=== PATIENT | male | born 1985 | race Two or more races ===

== ENCOUNTER 2023-05-22 20:43 | Emergency (ER) | payer MEDICAID, OTHER ==
[~2023-05-22] VITALS: Ht 185.4 cm; Wt 83.2 kg
[2023-05-22 21:26] VITALS: BP 145/100; PULSE 96
[2023-05-22 22:42] LABS: Basophils # (auto) 0.1 10 ^3/uL (0-0.2); Eosinophils # (auto) 0.2 10 ^3/uL (0-0.8); Eosinophils % (auto) 2.3 % (0.0-7.0); Hematocrit 48.9 % (41.0-53.0); Hemoglobin 17.2 g/dL (13.5-17.5); Lymphocytes # (auto) 3.1 10 ^3/uL (0.4-5.4); Lymphocytes % (auto) 31.7 % (10.0-50.0); Mean Corpuscular Hemoglobin 30.9 pg (28.0-32.0); Mean Corpuscular Hgb Conc. 35.2 g/dL (32.0-36.0); Mean Corpuscular Volume 87.9 fL (80.0-100.0); Monocytes # (auto) 0.7 10 ^3/uL (0-1.3); Monocytes % (auto) 6.7 % (0.0-12.0); Neutrophils # (auto) 5.8 10 ^3/uL (1.6-8.6); Neutrophils % (auto) 58.3 % (37.0-80.0); Nucleated Red Blood Cells % 0.2 %; Red Blood Cells 5.57 10^6/uL (4.5-5.90); Red Cell Distribution Width 13.3 % (11.8-14.3); White Blood Cell 9.9 10^3/uL (4.4-10.8)
[2023-05-22 22:58] LABS: Alanine Aminotransferase 47 U/L (7-40); Albumin 4.7 g/dL (3.2-4.8); Alkaline Phosphatase 124 U/L (46-116); Anion Gap 6 (5-15); Aspartate Aminotransferase 27 U/L (13-40); BUN/Creatinine Ratio 10.6 (10.0-20.0); Blood Urea Nitrogen 11 mg/dL (9-23); Calcium 9.8 mg/dL (8.7-10.4); Carbon Dioxide 27 mmol/L (20-30); Chloride 106 mmol/L (98-107); Glucose 98 mg/dL (74-106); Potassium 3.5 mmol/L (3.5-5.1); Sodium 139 mmol/L (136-145)
[2023-05-22 22:59] LABS: Bilirubin, Total 1.4 mg/dL (0.2-1.0); Total Protein 7.7 g/dL (5.7-8.2)
[2023-05-23 02:12] VITALS: RESP 20; O2SAT 99
[2023-05-23] MEDS: ALBUTEROL SULF 2.5 MG/0.5ML(0.5%) NEB SOLN NEB ONE (02:12)
[2023-05-23] MEDS ORDERED: DEX4T PO (17:35)
[2023-05-23] MEDS ORDERED: METO-281 PO (17:35)
[2023-05-23] MEDS ORDERED: ALBUAER3 IN (17:35)
== END 2023-05-23 04:33 | disposition home or self-care (01) ==
LOC: ER 20:43
DX: F41.9 Anxiety disorder, unspecified (principal); F19.10 Other psychoactive substance abuse, uncomplicated; F17.210 Nicotine dependence, cigarettes, uncomplicated; F12.10 Cannabis abuse, uncomplicated; F15.10 Other stimulant abuse, uncomplicated; F14.10 Cocaine abuse, uncomplicated
CPT/HCPCS: 36415; 71045; 80053; 83880; 84484; 85025; 94640

== ENCOUNTER 2023-05-23 13:49 | Emergency (ER) | payer MEDICAID ==
[~2023-05-23] VITALS: Ht 185.4 cm; Wt 83.6 kg
[2023-05-23] MEDS: SODIUM CHLORIDE 0.9% 1,000 ML IV ONE (14:55)
[2023-05-23] MEDS: METOCLOPRAMIDE HCL 5MG/ml INJ 2ml VIAL IV ONE (15:03)
[2023-05-23 15:17] VITALS: BP 123/80; PULSE 83; RESP 18; TEMP 97.6; O2SAT 98
[2023-05-23] MEDS ORDERED: METO-281 PO (17:35)
[2023-05-23] MEDS ORDERED: DEX4T PO (17:35)
[2023-05-23] MEDS ORDERED: ALBUAER3 IN (17:35)
== END 2023-05-23 18:11 | disposition home or self-care (01) ==
LOC: ER 13:49
DX: J45.909 Unspecified asthma, uncomplicated (principal); K29.70 Gastritis, unspecified, without bleeding
CPT/HCPCS: 71046; 96361; 96374; 99283; J2765; J7030

== ENCOUNTER 2024-09-12 09:34 | Emergency (ER) | payer MEDICAID ==
[~2024-09-12] VITALS: Ht 185.4 cm; Wt 86.5 kg
[~2024-09-12 09:34] MED LIST: ALBUAER3 IN; DEX4T PO; METO-281 PO
--- NOTE | 2024-09-12 09:43 | ED.PDOC ---
Back pain HPI HPI Comments This is a 39 year old male VIOLAA presenting to the ED with chief complaint of back pain. Patient reports that he was doing yard work yesterday when he had accidentally pulled a muscle in his lower back, causing pain. Patient relays that he now finds it hard to walk due to the pain. Patient denies any numbness, weakness, fall, injury, chest pain, or SOB. Time Seen by MD: 09:38 Reviewed Notes: Nurses Notes, Patient Care Representative Notes, Medications, Allergies Allergies: Coded Allergies: NO KNOWN ALLERGIES (Unverified , 05/23/23) Home Meds Active Scripts Albuterol Sulfate (VENTOLIN MDI) 90 Mcg Ih, 90 MCG IN Q6HP PRN for 31 Days, #1 MCG Prov:STEPHEN CURRIE 05/23/23 Dexamethasone (Decadron) 4 Mg Tb, 8 MG PO DAILY for 9 Days, #18 TAB Prov:STEPHEN CURRIE 05/23/23 Metoclopramide Hcl (Reglan) 10 Mg Tab, 10 MG PO TIDPRN PRN for 10 Days, #30 TAB Prov:STEPHEN CURRIE 05/23/23 Information Source: Patient, Emergency Med Personnel Mode of Arrival: EMS Timing: Days Duration: Since onset Location of Back pain: (B) Lower back Severity: Mild Prehospital treatment: None Quality: Aching Onset: Bending, Lifing Circumstance: Other (Yard work) History of: None Modifying Factors: Movement Past Medical History PAST MEDICAL HISTORY: Denies Surgical History: Denies all surgeries Family History Family History: Reviewed,noncontributory to illness Social History Smoker: Cigarettes Alcohol: Heavy Drugs: Cocaine, Marijuana, Methamphetamine Lives In: Home Constitutional: denies: chills, diaphoresis, fatigue, fever, malaise, sweats, weakness, others EENTM: denies: blurred vision, double vision, ear bleeding, ear discharge, ear drainage, ear pain, ear ringing, eye pain, eye redness, hearing loss, mouth pain, mouth swelling, nasal discharge, nose bleeding, nose congestion, nose pain, photophobia, tearing, throat pain, throat swelling, voice changes, others Respiratory: denies: cough, hemoptysis, orthopnea, SOB at rest, shortness of breath, SOB with excertion, stridor, wheezing, others Cardiovascular: denies: chest pain, dizzy spells, diaphoresis, Dyspnea on exertion, edema, irregular heart beat, left arm pain, lightheadedness, palpitations, PND, syncope, others Gastrointestinal: denies: abdomen distended, abdominal pain, blood streaked bowels, constipated, diarrhea, dysphagia, difficulty swallowing, hematemesis, melena, nausea, poor appetite, poor fluid intake, rectal bleeding, rectal pain, vomiting, others Genitourinary: denies: burning, dysuria, flank pain, frequency, hematuria, incontinence, penile discharge, penile sore, pain, testicle pain, testicle swelling, urgency, others Neurological: denies: dizziness, fainting, headache, left sided numbness, left sided weakness, numbness, paresthesia, pre-existing deficit, right sided numbness, right sided weakness, seizure, speech problems, tingling, tremors, weakness, others Musculoskeletal: reports: back pain; denies: gout, joint pain, joint swelling, muscle pain, muscle stiffness, neck pain, others Integumetry: denies: bruises, change in color, change in hair/nails, dryness, laceration, lesions, lumps, rash, wounds, others Allergic/Immunocompromised: denies: Difficulty Healing, Frequent Infections, Hives, Itching, others Hematologic/Lymphatic: denies: anemia, blood clots, easy bleeding, easy bruising, swollen glands, others Endocrine: denies: excessive hunger, excessive sweating, excessive thirst, excessive urination, flushing, intolerance to cold, intolerance to heat, unexplained weight gain, unexplained weight loss, others Psychiatric: denies: anxiety, bipolar disorder, depression, hopeless, panic disorder, schizophrenia, sleepless, suicidal, others All Other Systems: Reviewed and Negative Physical Exam General Appearance: Moderate Distress, Normal HEENT: Normal ENT Inspection, Pharynx Normal, TMs Normal Neck: Full Range of Motion, Non-Tender, Normal, Normal Inspection Respiratory: Chest Non-Tender, Lungs Clear, No Accessory Muscle Use, No Respiratory Distress, Normal Breath Sounds Cardiovascular: No Edema, No JVD, No Murmur, No Gallop, Normal Peripheral Pulses, Regular Rate/Rhythm Breast Exam: Deferred Gastrointestinal: No Organomegaly, Non Tender, No Pulsatile Mass, Normal Bowel Sounds, Soft Genitalia: Deferred Pelvic: Deferred Rectal: Deferred Extremities: No calf tenderness, Normal capillary refill, Normal inspection, Normal range of motion, Non-tender, No pedal edema Musculoskeletal : Apperance: Normal Neurologic: Alert, special educator II-XII nml as Tested, No Motor Deficits, Normal Affect, Normal Mood, No Sensory Deficits Cerebellar Function: NOT DONE Reflexes: NOT DONE Skin: Dry, Normal Color, Warm Peripheral Pulses: 3+ Radial (R), 3+ Radial (L) Lymphatic: No Adenopathy Was a procedure done? Was a procedure done?: No Back Pain Differential Dx Differential Diagnosis: Musculoskeletal Pain X-Ray, Labs, Meds, VS Vital Signs Date Time Temp Pulse Resp B/P (MAP) Pulse Ox O2 Delivery O2 Flow Rate FiO2 09/12/24 09:38 98.5 71 18 133/94 (107) 98 98.5 Patient alert. Complaining of back pain. No direct trauma. Vitals stable. Answering questions. Was given [employer]. No obvious injury. X-ray reviewed does not show any acute process. Was given prescription of Motrin. Was told to follow up with his primary care physician. Was told to come back if there is any problem. Time of 1ST Reevaluation: 10:38 Reevaluation 1ST: Improved Patient Education/Counseling: Diagnosis, Treatment Family Education/Counseling: No Family Present Additional Information Previous visits reviewed: 05/23/23 for reactive airway disease The following tests were ordered, and results were reviewed by me: LS-Spine XR Additional Information was gathered from interviewing the following independent historians: EMS I reviewed and agreed with the following test results read by other providers: LS-Spine XR I discussed treatment and results with medical personnel and: patient Comprehensive systems review obtained and negative except for what is stated in the HPI. SEPSIS Sepsis Screen Physician Orders Lumbar Spine 4+ View (09/12/24 09:39) Hydrocodone-Acet 10/325mg Tab ([employer] 10/ (09/12/24 09:45) Vital Signs Date Time Temp Pulse Resp B/P (MAP) Pulse Ox O2 Delivery O2 Flow Rate FiO2 09/12/24 09:38 98.5 71 18 133/94 (107) 98 98.5 Departure 1 Departure Time of Disposition: 09:44 Impression: Primary Impression: Lumbar sprain Qualified Codes: S33.5XXA - Sprain of ligaments of lumbar spine, initial encounter Additional Impression: Musculoskeletal pain Disposition: HOME / SELF CARE / HOMELESS Condition: Good e-Prescriptions Ibuprofen Micronized (MOTRIN TABLET) 600 Mg Tb 600 MG PO TID PRN for 5 Days, #15 TAB *Black box warning-NSAIDS can increase risk of MS & hypertension, GI irritation, ulceration, bleed, perferation. Do not use post cardiac surgery. Use short duration/lowest effective dose. Prov: SOLEDAD CURRIE MD 09/12/24 Discharged With: Self Critical Care Note Critical Care Time?: No Stability Stability form required: No Heart Score Heart Score: Heart Score Response (Comments) Value History N/A 0 EKG N/A 0 Age N/A 0 Risk Factors N/A 0 Troponin N/A 0 Total 0 I personally scribed for SOLEDAD CURRIE MD ([email or web address]) on 09/12/24 at 09:43. Electronically submitted by Ji Awan ([email or web address]). SOLEDAD CURRIE MD Sep 12, 2024 09:43
[2024-09-12] MEDS ORDERED: IBU600T PO (09:45)
--- NOTE | 2024-09-12 10:19 | DVH ---
EXAM: XY LUMBAR SPINE 4+ VIEW CLINICAL INDICATION: pain TECHNIQUE: XY LUMBAR SPINE 4+ VIEW Comparison: None FINDINGS/IMPRESSION: There is no evidence of acute fracture or dislocation. The visualized joint space is well maintained. The alignment is anatomical. There is no radiopaque foreign body.
[2024-09-12] MEDS: HYDROcodone-ACET 10/325MG TAB PO ONE (10:32)
[2024-09-12 10:50] VITALS: BP 136/90; PULSE 67; RESP 18; TEMP 98.2; O2SAT 96
== END 2024-09-12 11:20 | disposition home or self-care (01) ==
LOC: EDBD 09:34 → ER 09:38
DX: S33.5XXA Sprain of ligaments of lumbar spine, initial encounter (principal); M79.18 Myalgia, other site; F17.210 Nicotine dependence, cigarettes, uncomplicated; X58.XXXA Exposure to other specified factors, initial encounter; Y93.89 Activity, other specified; Y92.096 Garden or yard of other non-institutional residence as the place of occurrence of the external cause; Y99.8 Other external cause status
CPT/HCPCS: 72110